=== PATIENT | male | born 1985 | race Hispanic/Latino ===

== ENCOUNTER 2017-05-18 07:25 | Emergency (ER) | payer OTHER ==
[~2017-05-18] VITALS: Ht 170.2 cm; Wt 88.5 kg
--- NOTE | 2017-05-18 07:51 | ED GI/GU/ABDOMINAL COMPLAINT ---
History of Present Illness General Chief Complaint: Nausea, Vomiting, Diarrhea Stated Complaint: VOMITING Source: patient Exam Limitations: no limitations Vital Signs & Intake/Output Vital Signs & Intake/Output Vital Signs Date Time Temp Pulse Resp B/P B/P Pulse O2 O2 Flow FiO2 Mean Ox Delivery Rate 05/18 0743 99 Room Air 05/18 0728 98.1 96 20 126/82 98 Room Air Allergies Coded Allergies: No Known Allergies (05/18/17) Reconcile Medications Ondansetron HCl (Zofran) 4 MG TABLET 1 TAB PO Q6-8P PRN nausea Triage Note: PT TO ED C/O N/V/D SINCE 99. "I THREW UP OVER 20 TIMES, I FEEL WEAK AND DEHYDRATED". Triage Nurses Notes Reviewed? yes Onset: Abrupt Duration: hour(s): (12) Timing: multiple episodes today Location: generalized abdomen Modifying Factors: Worsens With: eating. Associated Symptoms: abdominal pain, nausea/vomiting HPI: 32-year-old male presents to the ER with sudden onset of vomiting and diarrhea last night. He states similar symptoms of his girlfriend. He vomited over 20 times and had diarrhea over 20 times. Nothing black or bloody. Denies any high fever or chills. He states he feels weak and dehydrated and can't even tolerate a cup of water. No chest pain or shortness of breath. Patient states he has bilateral lower abdominal cramping discomfort. Past History Travel History Traveled to [place] past 21 day No Medical History Any Pertinent Medical History? none Surgical History Surgical History: non-contributory Psychosocial History What is your primary language Gambian Tobacco Use: Current Daily Use Daily Tobacco Use Amount/Type: => 5 Cigarettes daily ETOH Use: denies use Illicit Drug Use: marijuana Family History Hx Contributory? No Review of Systems Review of Systems Constitutional: Denies: chills, fever. EENTM: Reports: no symptoms. Respiratory: Reports: no symptoms. Cardiovascular: Reports: no symptoms. GI: Reports: abdominal pain, diarrhea, nausea, vomiting. Genitourinary: Reports: no symptoms. Musculoskeletal: Reports: no symptoms. Skin: Reports: no symptoms. Neurological/Psychological: Reports: no symptoms. Hematologic/Endocrine: Denies: bruising, bleeding, polyuria, polydipsia. Immunologic/Allergic: Denies: splenectomy. All Other Systems: Reviewed and Negative Physical Exam Physical Exam General Appearance: well developed/nourished, alert, awake, anxious Head: atraumatic, normal appearance Eyes: Bilateral: normal appearance, PERRL, EOMI. Ears, Nose, Throat, Mouth: hearing grossly normal, moist mucous membrane Neck: normal inspection, supple, full range of motion Respiratory: normal breath sounds, chest non-tender, no respiratory distress Cardiovascular: regular rate/rhythm Peripheral Pulses: 2+ radial (R), 2+ radial (L) Gastrointestinal: normal bowel sounds, soft, tenderness (MILD BILATERAL LOWER QUAD), NO REBOUND/GUARDING Back: normal inspection, normal range of motion Extremities: normal range of motion Neurologic/Psych: no motor/sensory deficits, awake, alert, oriented x 3 Skin: intact, normal color, warm/dry Core Measures ACS in differential dx? No Sepsis Present: No Sepsis Focused Exam Completed? No Progress Differential Diagnosis: GASTROENTERITIS, CORINNE, DEHYDRATION Plan of Care: Orders Procedure Date/time Status URINALYSIS 05/18 755 Complete LIPASE 05/18 755 Complete COMPREHENSIVE METABOLIC PANEL 05/18 755 Complete CBC WITHOUT DIFFERENTIAL 05/18 755 Complete Laboratory Tests 05/18/17 0925: Urinalysis LIGHT H, Urine Color YEL, Urine Clarity HAZY H, Urine pH 6.0, Ur Specific Byron 1.025, Urine Protein 30 H, Urine Ketones 40 H, Urine Nitrite NEG, Urine Bilirubin NEG, Urine Urobilinogen 0.2, Ur Leukocyte Esterase NEG, Ur Microscopic SEDIMENT EXAMINED, Urine RBC 1-3, Urine WBC 1-3 H, Ur Epithelial Cells MOD H, Urine Bacteria FEW H, Urine Mucus MANY H, Micro UA Comment MORE INFO: H, Urine Hemoglobin NEG, Urine Glucose NEG 05/18/17 0810: Anion Gap 22 H, Estimated GFR > 60, BUN/Creatinine Ratio 22.2, Glucose 149 H, Calcium 10.7 H, Total Bilirubin 1.8 H, AST 33, ALT 63, Alkaline Phosphatase 125, Total Protein 8.4 H, Albumin 5.5 H, Globulin 2.9, Albumin/Globulin Ratio 1.9, Lipase 288, CBC w Diff NO MAN DIFF REQ, RBC 6.21 H, MCV 85.4, MCH 28.1, RDW 12.8, MPV 8.6, Lymphocytes % 4.3 L, Monocytes % 3.4, Eosinophils % 0.4, Basophils % 0.3, PUBS MCHC 32.9 L IV FLUIDS, ZOFRAN, PROTONIX 9:11 AM PATIENT FEELING BETTER, IV FLUDIS INFUSING PATIENT MUCH IMPROVED, STABLE FOR DISCHARGE HOME. ABDOMEN SOFT NONTENDER, NON TOXIC APPEARING. TOLERATING PO FLUIDS. Initial ED EKG: none Departure Departure Time of Disposition: 1033 Disposition: HOME OR SELF CARE Condition: Stable Clinical Impression Primary Impression: Gastroenteritis Referrals: Patient Has No Primary Care Dr (PCP/Family) Additional Instructions: TAKE ZOFRAN NEEDED FOR NAUSEA CLEAR LIQUID DIET TO DAY AND ADVANCE TOLERATED RETURN IF WORSE Departure Forms: Customer Survey General Discharge Information Prescriptions: Current Visit Scripts Ondansetron HCl (Zofran) 1 TAB PO Q6-8P PRN nausea #20 TAB
[2017-05-18 08:25] LABS: BASOPHIL % 0.3 % (0.0-2.0); EOSINOPHIL % 0.4 % (0-5); HEMATOCRIT 53.1 % (42-52); MEAN CORPUSCULAR HGB 28.1 PG (27.0-31.0); MEAN CORPUSCULAR HGB CONC 32.9 G/DL (33.0-37.0); MEAN CORPUSCULAR VOLUME 85.4 FL (80.0-94.0); MEAN PLATELET VOLUME 8.6 FL (7.4-10.4); PLATELET COUNT 248 /CUMM (130-400); RBC DISTRIBUTION WIDTH 12.8 % (11.5-14.5); RED BLOOD CELL CT 6.21 /CUMM (4.70-6.10); WHITE BLOOD CELL COUNT 13.7 /CUMM (4.8-10.8)
[2017-05-18] MEDS ORDERED: ZOFRAN4 M2 PO (10:34)
[2017-05-18 10:41] VITALS: BP 136/79
== END 2017-05-18 10:41 ==
LOC: ERH 07:25
PROVIDERS: Emergency Medicine
DX: K52.9 Noninfective gastroenteritis and colitis, unspecified (principal)
CPT/HCPCS: 81001; 96374; 96375